=== PATIENT | male | born 1965 | race Caucasian/White ===

== ENCOUNTER 2022-04-16 20:04 | Emergency (ER) | payer OTHER, SELFPAY ==
[2022-04-16 20:33] VITALS: BP 131/90; PULSE 107; RESP 20; TEMP 37.3; O2SAT 97
[2022-04-16 23:57] VITALS: PULSE 99; RESP 19; O2SAT 99
[2022-04-16 23:58] VITALS: BP 136/95; PULSE 96; RESP 17; O2SAT 97
[2022-04-17] VITALS (47 sets, daily range): BP systolic 123–147; BP diastolic 74–96; PULSE 79–96; RESP 12–30; O2SAT 93–100
--- NOTE | 2022-04-17 01:12 | ED.RECABL ---
HPI - Recheck/Abnormal Lab/Rx General Chief Complaint: Recheck/Abnormal Lab/Rx Stated Complaint: high blood sugar Time Seen by Provider: 04/17/22 00:15 Source: patient Mode of arrival: ambulatory Limitations: no limitations History of Present Illness HPI narrative: Patient is a 56-year-old male who presents to the ED with report of hyperglycemia. Patient reports he had a physical performed recently for work which showed his blood glucose to be elevated. He does intermittently check his blood glucose at home and has the supplies to do so, but denies a history of diabetes mellitus. Not on any medication for diabetes. He states over the last 1 week he has had fatigue, polyuria, and polydipsia. He states he checks his blood sugar 1 week ago and it was up into the 600s. Over the last couple days it has been ranging from 200-300, but tonight became up towards 600 again, which prompted his presentation. He does not currently have a primary care doctor. No recent cough, cold symptoms, fever, nausea, vomiting, abdominal pain. 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 Related Data Allergies Allergy/AdvReac Type Severity Reaction Status Date / Time No Known Allergies Allergy Verified 04/16/22 20:37 Review of Systems Review of Systems: CONSTITUTIONAL: Reports fatigue, polydipsia. Denies fever, chills, or sweats. ENT: Denies rhinorrhea, congestion, sore throat. CARDIOVASCULAR: Denies chest pain, palpitations, or edema. RESPIRATORY: Denies cough or dyspnea. GASTROINTESTINAL: Denies abdominal pain, nausea, vomiting. GENITOURINARY: Reports polyuria. Denies dysuria or hematuria. All systems reviewed & are unremarkable except as noted in HPI and below PMFSH Past Medical History Medical History (Updated 04/17/22 @ 04:35 by Marah Gibbs PA-C) No pertinent past medical history Surgical History Surgical History (Updated 04/17/22 @ 01:16 by Marah Gibbs PA-C) History of back surgery Social History Social History (Updated 04/17/22 @ 01:17 by Marah Gibbs PA-C) Smoking status: Current every day smoker Exam Narrative: GENERAL: Well appearing, obese, non-toxic, in no acute distress. HEAD: Normocephalic, atraumatic. THROAT: Pharynx clear, no exudate. MMs dry. NECK: Supple. No adenopathy, no masses. RESPIRATORY: Airway patent, respirations nonlabored. Occasional inspiratory wheezing bilaterally. CARDIOVASCULAR: Regular rate and rhythm without murmurs, rubs, or gallops. Peripheral pulses 2+ and equal bilaterally. ABDOMINAL: Soft, nontender, nondistended, no hepatosplenomegaly. Normoactive BS. MUSCULOSKELETAL: Moves all extremities. Strength/ROM intact without gross deformities or TTP. No edema. SKIN: Warm, dry, normal color. No rashes. NEURO: A&O X3. Speech clear. Cranial nerves II-XII grossly intact. Steady gait. No ataxic movements. PSYCHIATRIC: Appropriate mood and affect. Normal interaction. Course Vital Signs Vital signs: Vital Signs Temperature 99.1 F 04/16/22 20:33 Pulse Rate 107 H 04/16/22 20:33 Respiratory Rate 20 04/16/22 20:33 Blood Pressure 131/90 04/16/22 20:33 Pulse Oximetry 97 04/16/22 20:33 Oxygen Delivery Room Air 04/16/22 20:33 Temperature 99.1 F 04/16/22 20:33 Pulse Rate 92 04/17/22 01:16 Respiratory Rate 18 04/17/22 01:16 Blood Pressure 147/83 H 04/17/22 01:16 Pulse Oximetry 97 04/17/22 01:16 Oxygen Delivery Room Air 04/16/22 20:33 MDM - Recheck/Abnormal Lab/Rx MDM Narrative Medical decision making narrative: Patient presented to ED with recent elevated blood sugars. No history of diabetes mellitus, but does check his sugars at home recently. Vital signs stable upon arrival. Blood sugar upon arrival of 372. Hemoglobin A1c obtained and significantly elevated at 11.2. Remainder of laboratory evaluation notable for minimal leukocytosis, mildly elevated phosphorus, normal mag, normal kidney functio
[2022-04-17 01:25] LABS: Basophils Absolute Auto 0.1 K/mm3 (0.0-0.1); Basophils Percent Auto 0.9 % (0.2-1.2); Eosinophils Absolute Auto 0.1 K/mm3 (0-0.3); Eosinophils Percent Auto 1.2 % (0-4.4); Hematocrit 45.8 % (42.0-52.0); Hemoglobin 16.8 g/dL (14.0-18.0); Immature Granulocyte Absolute 0.03 K/mm3 (0.00-0.031); Immature Granulocyte Percent A 0.3 % (0-0.5); Lymphocytes Absolute Auto 2.96 K/mm3 (0.9-3.2); Lymphocytes Percent Auto 28.5 % (18.3-44.2); Mean Corpuscular HGB Conc 36.7 g/dl (32-36); Mean Corpuscular Hemoglobin 33.5 pg (26-34); Mean Corpuscular Volume 91.2 fl (80-100); Mean Platelet Volume 9.9 fl (7.4-10.4); Monocytes Absolute Auto 0.9 K/mm3 (0.1-0.6); Monocytes Percent Auto 8.3 % (2.6-8.5); Neutrophils Absolute Auto 6.3 K/mm3 (1.3-6.7); Neutrophils Percent Auto 60.8 % (45.5-73.1); Platelet Count Result 217 k/mm3 (150-375); Red Blood Count 5.02 M/mm3 (4.6-6.20); Red Cell Distribution Width 12.2 % (11.5-14.5); White Blood Count 10.4 K/mm3 (4.5-10.0)
[2022-04-17 01:26] LABS: Glucose Point of Care 372 mg/dl (65-105)
[2022-04-17 01:34] LABS: Alanine Aminotransferase 55 U/L (6-50); Albumin Level 4.5 g/dL (3.5-5.1); Alkaline Phosphatase 141 U/L (38-126); Anion Gap 14 mmol/L (8-16); Aspartate Amino Transferase 50 U/L (17-59); Bilirubin,Total 0.7 mg/dL (0.2-1.3); Blood Urea Nitrogen 12 mg/dL (9-20); Carbon Dioxide 22 mmol/L (22-30); Chloride 99 mmol/L (98-107); Estimated CRCL calculation 96 ml/min; Estimated Glomerular Filt Rate > 60; Glucose 368 mg/dL (65-110); Magnesium 2.1 mg/dL (1.6-2.3); Phosphorus 5.3 mg/dL (2.5-4.5); Potassium 4.3 mmol/L (3.4-5.0); Sodium 135 mmol/L (137-145)
[2022-04-17 01:37] LABS: Beta-Hydroxybutyrate/Acetoacetate 0.73 mmol/L (0.02-0.27)
[2022-04-17] MEDS: SODIUM CHLORIDE 0.9% IV 1,000 ML 999 ML IV CONT ×3 (01:37→05:12)
[2022-04-17 01:45] LABS: Hemoglobin A1C 11.2 % (<5.7)
[2022-04-17 03:14] LABS: Appearance Urine Clear (Clear); Bilirubin Urine Negative (Negative); Color Urine Yellow (Yellow); Glucose Urine UA 3+ mg/dL (Negative); Ketones Urine 1+ mg/dL (Negative); Leukocyte Esterase Ur Negative LEU/UL (Negative); Nitrate Urine Negative (Negative); Protein Urine Negative (Negative); Urobilinogen Urine 0.2 mg/dL (<2.0); pH Urine 5.5 (5.0-9.0)
[2022-04-17 03:17] LABS: Add Urine Microscopic? YES; Blood Urine Trace (Negative); Mucus Urine Rare /lpf; RBC Urine 0-2 /hpf (0-2); WBC Urine 0-3 /hpf
[2022-04-17 04:10] LABS: Glucose Point of Care 310 mg/dl (65-105)
[2022-04-17] MEDS: metFORMIN HCL 500 MG TABLET PO (05:12)
[2022-04-17 06:23] LABS: Glucose Point of Care 259 mg/dl (65-105)
== END 2022-04-17 06:24 | disposition home or self-care (01) ==
PROVIDERS: Emergency Medicine; Physician Assistant; Emergency Provider Emergency Medicine
DX: E11.65 Type 2 diabetes mellitus with hyperglycemia (principal); F17.210 Nicotine dependence, cigarettes, uncomplicated
CPT/HCPCS: 36415; 80053; 81001; 82010; 82948; 83036; 83735; 84100; 85025; 96361; 96365; 96366; 99284; A9270; J0131; J7030

== ENCOUNTER 2022-05-13 10:09 | Outpatient (CLI) | payer OTHER, SELFPAY | END 2022-05-13 10:10 | disposition home or self-care (01) | LOC: ANHGOSHLAB 10:14 | PROVIDERS: PCP Emergency Medicine; Visit Provider Emergency Medicine | DX: R23.3 Spontaneous ecchymoses (principal); E11.9 Type 2 diabetes mellitus without complications; R10.9 Unspecified abdominal pain; R63.4 Abnormal weight loss; R74.8 Abnormal levels of other serum enzymes | CPT/HCPCS: 99199; 36415 ==

== ENCOUNTER 2022-05-31 07:46 | Outpatient (CLI) | payer OTHER, SELFPAY ==
--- NOTE | ~2022-05-31 | CT_ITS ---
EXAMINATION: CT lung screening DATE: 05/31/2022 08:21 INDICATION: Personal history of nicotine dependence, current smoker with 80 pack year history TECHNIQUE: Computed tomography (CT) of the chest was performed without intravenous contrast. The dose -length product (DLP) was 343.32 mGy-cm. Automated exposure control and iterative reconstruction tech [email or web address] were employed. COMPARISON: None FINDINGS: There is mild emphysema. No suspicious pulmonary nodules are identified. The lungs are free of acute opacities. No pleural effusion or pneumothorax. The heart size is normal. Mediastinal lymph nodes are upper limits of normal in diameter in size. There is moderate thoracic spondylosis. IMPRESSION: 1. Lung-RADS category 1: Negative. Continue annual screening with noncontrast low-dose chest CT in 12 months. Reviewed, dictated and finalized at location A. IMPRESSION: 1. Lung-RADS category 1: Negative. Continue annual screening with noncontrast l ow-dose chest CT in 12 months.
--- NOTE | ~2022-05-31 | US_ITS ---
EXAMINATION: US abdomen complete DATE: 05/31/2022 09:30 INDICATION: Unspecified abdominal pain TECHNIQUE: Multiple grayscale and Doppler ultrasound images of the abdomen were obtained. COMPARISON: None FINDINGS: The visual is abdominal aorta is normal in caliber with no aneurysm. Visualized proximal to mid infer ior vena cava is normal. The pancreatic head and body are normal in appearance. The pancreatic tail is not visualized. Liver has normal contour, with a smooth surface. There is increased parenchymal ec hogenicity and coarsened echotexture consistent with diffuse hepatic steatosis. No liver lesion ident ified. No intrahepatic biliary duct dilation suspected. Portal venous flow was seen in the hepatopet al, normal direction and has normal Doppler waveform. The gallbladder is normal in appearance. There is no cholelithiasis. The common bile duct measures 5 mm, which is normal. Sonographic Rivero sign w as reported as negative by the wet primer powder blender. There is normal renal contour and echogenicity bilaterall y. The right kidney measures 10.7 x 5.0 x 6.7 cm and the left 12.5 x 6.3 x 6.6 cm. There are no foca l renal lesions identified. There is no hydronephrosis. Normal spleen measuring 10.6 cm in maximal l ength. IMPRESSION: 1. Diffuse hepatic steatosis. Otherwise normal abdominal ultrasound. Reviewed, dictated and finalized at location B.
== END 2022-05-31 07:47 | disposition home or self-care (01) ==
PROVIDERS: PCP Emergency Medicine; Visit Provider Emergency Medicine
DX: Z12.2 Encounter for screening for malignant neoplasm of respiratory organs (principal); R74.8 Abnormal levels of other serum enzymes; R10.9 Unspecified abdominal pain; R63.4 Abnormal weight loss; Z87.891 Personal history of nicotine dependence; K76.0 Fatty (change of) liver, not elsewhere classified
CPT/HCPCS: 71271; 76700

== ENCOUNTER 2022-11-25 07:40 | Outpatient (NON) | payer OTHER, SELFPAY | END 2022-11-25 07:41 | disposition home or self-care (01) | LOC: ANHLAB 11-26 07:42 | PROVIDERS: PCP Emergency Medicine; Visit Provider Internal Medicine Gastroenterology | DX: Z12.11 Encounter for screening for malignant neoplasm of colon (principal) | CPT/HCPCS: 88305 ==

== ENCOUNTER 2022-11-25 10:46 | Day surgery (SDC) | payer OTHER, SELFPAY ==
[2022-10-29 14:25] VITALS: BMI 36.2
[2022-11-11 14:07] VITALS: BMI 35.9
[2022-11-25 11:10] VITALS: BP 124/81; PULSE 72; RESP 18; TEMP 36.8; O2SAT 98
[2022-11-25] MEDS: LACTATED RINGERS 1,000 ML 150 ML IV CONT (11:23)
[2022-11-25 11:24] LABS: Glucose Point of Care 134 mg/dl (65-105)
--- NOTE | 2022-11-25 11:39 | WPDANESEPPF ---
Anes - Initial Pre Proc Eval Procedure: Operation Date: 11/25/22 12:30 Proposed Procedures p Screening Colonoscopy - Isidoro Heredia MD Date/Time: 11/25/22 11:39 Surgeon: Isidoro Heredia MD Pre Op Diagnosis: Neoplasm Screening Patient Data Age: 57 Gender: M Height: 1.8 m Weight: 117 kg Last Vital Signs Temp 36.8 C 11/25/22 11:10 Pulse 72 11/25/22 11:10 Resp 18 11/25/22 11:10 BP 124/81 11/25/22 11:10 Pulse Ox 98 11/25/22 11:10 O2 Del Method Room Air 11/25/22 11:10 Allergies Allergy/AdvReac Type Severity Reaction Status Date / Time No Known Allergies Allergy Verified 11/25/22 11:00 Home Medications Medication Instructions Recorded Confirmed Type ascorbate calcium (vitamin C) 500 500 mg PO DAILY 05/13/22 11/25/22 History mg tablet aspirin 81 mg tablet,delayed 81 mg PO DAILY 05/13/22 11/25/22 History release cholecalciferol (vitamin D3) 125 125 mcg PO DAILY 05/13/22 11/25/22 History mcg (5,000 unit) capsule krill 300 mg-omega-3 90 mg-dha 27 1 cap PO DAILY 05/13/22 11/25/22 History mg-epa 45 up-atdcqgh-bcyugtq capsule (Maximum Red Krill [place]-3) vitamin E (dl, acetate) 180 mg 180 mg PO DAILY 05/13/22 11/25/22 History (400 unit) capsule bupropion HCl 150 mg tablet,12 hr See Rx Instructions PO BID #180 07/20/22 11/25/22 Rx sustained-release (Wellbutrin SR) tabs metformin 500 mg tablet 500 mg PO BID #180 tabs 07/20/22 11/25/22 Rx rosuvastatin 20 mg tablet (Crestor) 20 mg PO DAILY #90 tabs 07/20/22 11/25/22 Rx sodium,potassium,mag sulfates 17.5 See Rx Instructions PO .COMPLEX 10/29/22 11/11/22 Rx gram-3.13 gram-1.6 gram oral soln #354 mL (Suprep Bowel Prep Kit) Laboratory Tests 11/25/22 11:20 POC Capillary Glucose 134 mg/dl H mg/dl (65-105) Patient hx anesthesia problems: none Family hx anesthesia problems: none Results Review: All pre-operative results and documents have been reviewed as part of the pre-operative evaluation. [facility] Past Medical History Medical History (Updated 11/25/22 @ 11:40 by Barrett Weber MD) Diabetes mellitus Mixed hyperlipidemia No pertinent past medical history Tobacco dependence Surgical History Surgical History History of back surgery Social History Social History Smoking packs per day: 1.5 Smoking cigarettes per day: 30.0 Smoking status: Never smoker Tobacco type: cigarettes Second hand tobacco smoke exposure: Yes Alcohol intake: never Alcohol use details: SOCIALLY Substance use: never Substance use type: does not use Lack of Transportation: No Lack of Food: Never True Current Housing: Decline to Answer Concerned About Future Housing: Decline to Answer Difficulty Paying Gas/Electric Bills: No Difficulty Paying for Meds: No Currently Unemployed: No Education: High School Diploma/GED Difficulty w/ Childcare or Family Care: No Living arrangements: alone Occupation/Education: occupation Additional occupation/education comments: [employer] B [employer] Spiritual care concerns: No Anes - Eval Final PreProcedure Day of Procedure 11/25/22 11:39 Patient weight: obese Heart: regular rate and rhythm Lungs: clear to auscultation and normal air movement Airway: Mallampati scale class II Neurological: alert and oriented Last oral intake: >/= 8 hours ASA classification: III Emergent: no Anesthetic plan: proceed Anesthesia type and monitoring: general GIVS Results Review: All pre-operative results and documents have been reviewed as part of the pre-operative evaluation. Informed Consent: The patient's anesthetic plan and its attendant risks and benefits were discussed with the patient/family/POA. Questions were solicited and answers provided to the satisfaction of the patient/family/POA.
--- NOTE | 2022-11-25 13:36 | SUR.PREOP ---
PT UPDATED. 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 NO TIME FRAME WAS GIVEN.
--- NOTE | 2022-11-25 14:09 | PM.HPGS ---
History of Present Illness History of Present Illness Consent: Risks, benefits, and alternatives have been discussed and questions answered. Patient agrees to proceed with procedure. Chief complaint: Neoplasm Screening Narrative: Dameon Godoy is a 57 year old male Presents for screening colonoscopy. Patient's family history is significant his father had colon cancer. Father also had stomach cancer. Patient reports his own weight appetite and bowel movements are normal. Patient denies abdominal pain. He has had no bleeding. Patient presents today for screening colonoscopy. Review of Systems Review of Systems: Review of systems is noncontributory. [facility] Past Medical History Medical History (Updated 11/25/22 @ 14:11 by Isidoro Heredia MD) Diabetes mellitus Mixed hyperlipidemia No pertinent past medical history Tobacco dependence Surgical History Surgical History History of back surgery Social History Social History Smoking packs per day: 1.5 Smoking cigarettes per day: 30.0 Smoking status: Never smoker Tobacco type: cigarettes Second hand tobacco smoke exposure: Yes Alcohol intake: never Alcohol use details: SOCIALLY Substance use: never Substance use type: does not use Lack of Transportation: No Lack of Food: Never True Current Housing: Decline to Answer Concerned About Future Housing: Decline to Answer Difficulty Paying Gas/Electric Bills: No Difficulty Paying for Meds: No Currently Unemployed: No Education: High School Diploma/GED Difficulty w/ Childcare or Family Care: No Living arrangements: alone Occupation/Education: occupation Additional occupation/education comments: [employer] Spiritual care concerns: No Meds Home Medications and Allergies Home Medications Medication Instructions Recorded Confirmed Type ascorbate calcium (vitamin C) 500 500 mg PO DAILY 05/13/22 11/25/22 History mg tablet aspirin 81 mg tablet,delayed 81 mg PO DAILY 05/13/22 11/25/22 History release cholecalciferol (vitamin D3) 125 125 mcg PO DAILY 05/13/22 11/25/22 History mcg (5,000 unit) capsule krill 300 mg-omega-3 90 mg-dha 27 1 cap PO DAILY 05/13/22 11/25/22 History mg-epa 45 tn-yevknzh-negshxp capsule (Maximum Red Krill [place]-3) vitamin E (dl, acetate) 180 mg 180 mg PO DAILY 05/13/22 11/25/22 History (400 unit) capsule bupropion HCl 150 mg tablet,12 hr See Rx Instructions PO BID #180 07/20/22 11/25/22 Rx sustained-release (Wellbutrin SR) tabs metformin 500 mg tablet 500 mg PO BID #180 tabs 07/20/22 11/25/22 Rx rosuvastatin 20 mg tablet (Crestor) 20 mg PO DAILY #90 tabs 07/20/22 11/25/22 Rx sodium,potassium,mag sulfates 17.5 See Rx Instructions PO .COMPLEX 10/29/22 11/11/22 Rx gram-3.13 gram-1.6 gram oral soln #354 mL (Suprep Bowel Prep Kit) Allergies Allergy/AdvReac Type Severity Reaction Status Date / Time No Known Allergies Allergy Verified 11/25/22 11:00 Vital Signs Vital Signs - 24 hr 11/25/22 11:10 Temperature 98.3 F Pulse Rate 72 Respiratory Rate 18 Blood Pressure 124/81 Pulse Oximetry 98 Oxygen Delivery Room Air Exam Narrative: Physical exam reveals patient to be alert. Vital signs stable. HEENT exam is unremarkable. Patient anicteric. Lungs are clear. Heart without murmur. Abdomen bowel sounds present soft nontender with no organomegaly. Digital external rectal exam is normal. Assessment and Plan Assessment and plan (1) Encounter for screening colonoscopy: Code(s): Z12.11 - Encounter for screening for malignant neoplasm of colon Status: Acute Assessment and Plan: Patient's father has had colon cancer. Suggest screening colonoscopy now and at intervals in the future. Further recommendations will be given after endoscopy. (2) Family history of colon cancer in
[2022-11-25 14:27] VITALS: BP 107/61; PULSE 72; RESP 16; O2SAT 95
[2022-11-25 14:37] VITALS: BP 104/66; PULSE 70; RESP 16; O2SAT 98
[2022-11-25 14:47] VITALS: BP 117/75; PULSE 70; RESP 16; O2SAT 98
--- NOTE | 2022-11-25 14:49 | SUR.PHASEII ---
PT AWAKE AND ALERT. DRINKING WATER. STATES HE IS READY TO GO HOME AND EAT. DENIES PAIN OR NAUSEA.
--- NOTE | 2022-11-25 14:57 | SUR.PHASEII ---
PT AWAKE AND ALERT. DRESSED AND WAITING FOR RIDE.
== END 2022-11-25 15:12 | disposition home or self-care (01) ==
PROVIDERS: PCP Emergency Medicine; Visit Provider Internal Medicine Gastroenterology
PROC: 0DJD8ZZ Inspection of Lower Intestinal Tract, Via Natural or Artificial Opening Endoscopic (ICD-10-PCS; CPT 45378; principal; 2022-11-25 12:30)
DX: Z80.0 Family history of malignant neoplasm of digestive organs (principal)
CPT/HCPCS: 45385

== ENCOUNTER 2025-04-08 10:27 | Outpatient (CLI) | payer OTHER, SELFPAY ==
--- NOTE | ~2025-04-08 | CT_ITS ---
CT Scan of the Chest without Contrast: Clinical Indication: Lung cancer screening, nicotine dependence Technique: Contiguous sections were acquired throughout the chest without intravenous contrast. Dose reduction technique was used on this scan by utilizing automated exposure control and iterative recon struction technique. The dose-length product (DLP) was 376.87 mGy-cm. COMPARISON: 05/31/2022 Findings: There is no evidence of any significant mediastinal, hilar or axillary lymphadenopathy. The mediastin al soft tissues appear normal. There is no evidence of pleural or pericardial effusion. The lungs are clear. No pulmonary nodules or infiltrates are noted. Minimal emphysema noted the lung apices. Images through the upper abdomen reveal no abnormalities. Impression: Lung RADS 1: Negative. 12 month follow-up screening CT advised. Reviewed, dictated and finalized at [facility]. Impression: Lung RADS 1: Negative. 12 month follow-up screening CT advised.
--- OUTSIDE RECORDS SUMMARY | 2025-04-08 11:20 | XMS_ITS | Clinical Summary ---
Author Organization [facility] Address [address] [place] [address] Care Team Providers Care Nurse Special Name Role Phone Unavailable Primary Care Provider Unavailabl e Source Comments [facility],non-owned Affiliates and Associated Physician Practices is amultiple site organization consisting of ambulatory clinics and hospital sitesin [place], [place], [place] and [place]. This disclosure is being madepursuant to the Care Everywhere program and may not contain all information available regarding this patient. Last updated 18.[facility] Allergies No known active allergies Medications * Be aware that medications may not be up to date on this document. Alwaysverify current medications with the patient. albuterol HFA (PROVENTIL;VENT LUPE;PROAIR) 108 (90 BASE) MCG/ACT inhalerIndicati ons:Wheezing Inhale 2 Puffs by mouth every 6 hours as needed for Shortness of Breath, Wheezing or Cough 1 Inhaler 6 Active Social History Tobacco Use Types Packs/Day Years Used Date Smoking Tobacco: Every Day Cigarettes Sex and Gender Information Value Date Recorded Sex Assigned at Not on file Legal Sex Male 3:21 PM FILM DEVELOPER Gender Identity Not on file Sexual Orientation Not on file Last Filed Vital Signs Vital Sign Reading Time Taken Comments Blood Pressure 118/82 07/19/2016 4:57 PM FILM DEVELOPER Pulse 89 07/19/2016 4:57 PM FILM DEVELOPER Temperature 36.4 C (97.6 F) 07/19/2016 4:57 PM FILM DEVELOPER Respiratory Rate 20 07/19/2016 4:57 PM FILM DEVELOPER Oxygen Saturation - - Inhaled Oxygen Concentration - - Weight 128.8 kg (284 lb) 07/19/2016 4:57 PM FILM DEVELOPER Height 180.3 cm (5' 11) 07/19/2016 4:57 PM FILM DEVELOPER Body Mass Index 39.61 07/19/2016 4:57 PM FILM DEVELOPER Plan of Treatment Health Maintenance Due Date Last Done Comments COLOGUARD (AGES 45-75) - COL ON CA SCREENING 1967 COLON MONITORING 1967 COLONOSCOPY - COLON CA SCREENING 1967 CT COLONOGRAPHY - COLON CA SCREENING 1967 Colorectal Cancer Screening 1967 FIT - COLON CA SCREENING 1967 FLEX SIG - COLON CA SCREENING 1967 LIPID TESTING 1967 HIV SCREENING 1982 HEPATITIS C SCREENING 05/11/1985 DTAP/TDAP/TD VACCINES (1 - Tdap) 1986 HEPATITIS B VACCINE (1 of 3 - 19+ 3-dose series) 1986 PNEUMOCOCCAL VACCINE 50+ (1 of 1 - PCV) 2017 ZOSTER VACCINE (1 of 2) 2017 COVID-19 VACCINE (1 - 2023-2 5 season) 2024 DEPRESSION SCREENING 08/22/2024 INFLUENZA VACCINE (#1) 2025 HIB VACCINE Aged Out No longer eligi ble based on patient's age to complete this topic HPV VACCINE Aged Out No longer eligi ble based on patient's age to complete this topic MENINGOCOCCAL (Group B) VACC INE SHARED DECISION-MAKING Aged Out No longer eligibl e based on patient's age to complete this topic MENINGOCOCCAL GROUPS A/C/Y/W VACCINE Aged Out No longer eligible b ased on patient's age to complete this topic Insurance [facility]
--- OUTSIDE RECORDS SUMMARY | 2025-04-08 11:20 | XMS_ITS | Clinical Summary ---
Author Organization [address] Address [address] [place] [id number] Care Team Providers Care Central Supply Nurse Name Role Phone Mayank Childs MD Primary Care Provider [phone] Allergies No known active allergies Medications HYDROcodone-trisha taminophen (VICODIN) 10-300 mg per tablet Take 1 tablet by mouth every 6 (six) hours as needed for moderate pain (pain scale 5-7). Active Active Problems Problem Noted Date Diagnosed Date Lumbar disc disease with radiculopathy 7 Social History Tobacco Use Types Packs/Day Years Used Date Smoking Tobacco: Every Day Smokeless Tobacco: Never Alcohol Use Standard Drinks/Week Comments Yes 0 (1 standard drink = 0.6 oz pur e alcohol) Personal Safety Answer Date Recorded Getting School Help Needed Not on file 11/05 Sex and Gender Information Value Date Recorded Sex Assigned at Not on file Legal Sex Male 2:56 PM CDT Gender Identity Not on file Sexual Orientation Not on file Obstetrics History Last Filed Vital Signs Vital Sign Reading Time Taken Comments Blood Pressure 132/84 05/03/2017 10:32 AM CDT Pulse - - Temperature - - Respiratory Rate - - Oxygen Saturation - - Inhaled Oxygen Concentration - - Weight 122.5 kg (270 lb) 05/03/2017 10:32 AM CDT Height 155.8 cm (5' 1.34) 05/03/2017 10:32 AM C DT Body Mass Index 50.45 05/03/2017 10:32 AM CDT Plan of Treatment Not on file Insurance [employer] Care Teams Central Supply Nurse Relationship Specialty Start Date End Date Mayank Childs MD PCP - General Neurosurgery 05/03/17
== END 2025-04-08 10:28 | disposition home or self-care (01) ==
PROVIDERS: PCP Nurse Practitioner Family; Visit Provider Nurse Practitioner Family
DX: Z11.2 Encounter for screening for other bacterial diseases (principal); Z87.891 Personal history of nicotine dependence
CPT/HCPCS: 71271